=== PATIENT | male | born 1980 | race Two or more races ===

== ENCOUNTER 2019-05-26 16:07 | Emergency (ER) | payer SELFPAY ==
[~2019-05-26] VITALS: Ht 157.5 cm; Wt 61.2 kg
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
--- NOTE | 2019-05-26 16:57 | NUR ---
SEEN AND EXAMINED BY SHANI REYES
[2019-05-26] MEDS ORDERED: IBUPROFEN 400 MG TABLET PO ONE (17:00)
[2019-05-26] MEDS ORDERED: ONDANSETRON 4 MG TAB.RAPDIS SL ONE (17:00)
--- NOTE | 2019-05-26 17:02 | NUR ---
PT IS WHEELED TO CT SCAN VIA WHEELCHAIR.
[2019-05-26] MEDS ORDERED: IBUPROFEN 400 MG TABLET ONE (17:17)
[2019-05-26] MEDS ORDERED: ONDANSETRON 4 MG TAB.RAPDIS ONE (17:17)
[2019-05-26] MEDS ORDERED: ACETAMINOPHEN ES 500 MG TABLET PO ONE (18:30)
[2019-05-26] MEDS ORDERED: ACETAMINOPHEN ES 500 MG TABLET ONE (18:37)
[2019-05-26 18:55] VITALS: BP 129/71
--- NOTE | 2019-05-26 18:55 | NUR ---
Patient discharged to home in stable condition. Written and verbal after care instructions given. Patient verbalizes understanding of instruction.
== END 2019-05-26 18:59 | disposition home or self-care (01) ==
LOC: ER 16:09
DX: S16.1XXA Strain of muscle, fascia and tendon at neck level, initial encounter (principal); S39.012A Strain of muscle, fascia and tendon of lower back, initial encounter; S80.01XA Contusion of right knee, initial encounter; S20.212A Contusion of left front wall of thorax, initial encounter; S20.211A Contusion of right front wall of thorax, initial encounter; S09.8XXA Other specified injuries of head, initial encounter; V73.6XXA Passenger on bus injured in collision with car, pick-up truck or van in traffic accident, initial encounter; Y93.89 Activity, other specified; Y92.488 Other paved roadways as the place of occurrence of the external cause; Y99.8 Other external cause status
CPT/HCPCS: 71111; 72050; 72110; 73564; 99284; Q0162